=== PATIENT | female | born 1950 | race Caucasian/White ===

== ENCOUNTER 2018-11-20 14:01 | Observation (INO) ==
[2018-11-20] MEDS ORDERED: LORazepam 2 MG/1 ML VIAL IV STA ×2 (14:17→14:40)
[2018-11-20] MEDS ORDERED: LORazepam 2 MG/1 ML VIAL ONE (14:18)
[2018-11-20] MEDS ORDERED: MORPHINE 4 MG/1 ML VIAL ONE (14:29)
[2018-11-20] MEDS ORDERED: MORPHINE 4 MG/1 ML VIAL IV STA (14:38)
[2018-11-20] MEDS ORDERED: HALOPERIDOL 5 MG/ML AMP IV STA (14:41)
[2018-11-20 16:23] LABS: Basophils % 0.2 % (0.0-0.8); Eosinophils % 0.2 % (0.00-10.9); Hematocrit 39.3 VOL% (35.7-47.0); Hemoglobin 13.1 GM/DL (12.0-16.0); Immature Granulocytes % 0.6 %; Immature Granulocytes Absolute 0.07 #; Lymphocytes # 1.7 10*3/uL (1.4-4.0); Lymphocytes % 14.2 % (21.3-54.2); Mean Corpuscular HGB Conc 33.3 GM/DL (32-36); Mean Corpuscular Hemoglobin 31 PG (27-34); Mean Corpuscular Volume 92.9 FL (87-102); Mean Platelet Volume 10.6 FL (9.6-12.0); Monocytes # 0.7 10*3/uL (0.11-0.8); Monocytes % 5.4 % (1.7-12.7); Neutrophils # 9.8 10*3/uL (1.4-7.4); Neutrophils % 79.4 % (38.7-73.9); Platelet Count 202 T/CUMM (130-400); Red Blood Count 4.23 MC/CUMM (3.8-5.5); Red Cell Distribution Width 13.7 % (9.3-17.3); White Blood Count 12.3 T/CUMM (4-12)
[2018-11-20] MEDS ORDERED: SODIUM CHLORIDE 0.9% 500 ML IV STA (16:25)
[2018-11-20 16:27] LABS: Apearance,Urine CLEAR (Clear); Bacteria,Urine Occasional /HPF (Few); Bilirubin,Urine Negative (Negative); Blood, Urine Moderate mg/dL (Negative); Glucose,Urine (UA) Negative (Negative); Ketones,Urine Negative (Negative); Nitrite,Urine Negative (Negative); Protein,Urine Negative; RBC,Urine 2 /HPF (0-4); Urine Color Straw (Yellow); Urine Specific Gravity 1.004 (1.001-1.035); Urine Urobilinogen < 2.0 EU/DL (0.2-1.0)
[2018-11-20 16:32] LABS: INR 0.9; PT Patient Result 10.3 SECS; Partial Thromboplastin Time 26.6 SECS (0-40)
[2018-11-20 16:35] LABS: Barbiturates Screen,Urine Negative (Negative); Benzodiazepines Screen,Urine Negative (Negative); Cannabinoid Screen,Urine Negative (Negative); Opiate Screen,Urine Positive (Negative); Phencyclidine Screen,Urine Negative (Negative)
[2018-11-20 16:47] LABS: Albumin 3.1 G/DL (3.4-5.0); Bilirubin,Total 0.7 MG/DL (0.2-1.0); Calcium 8.8 MG/DL (8.5-10.1); Potassium 3.3 MMOL/L (3.5-5.1); Total Protein 7.7 G/DL (6.4-8.3)
[2018-11-20 16:54] LABS: Pt O2 Delivery Device Simple Mask
[2018-11-20 16:55] LABS: ABG Base Excess 1.9 MMOL/L (-2.5-2.5); ABG HCO3 26.1 MMOL/L (20-26); ABG Oxygen Saturation 99.8 % (95-100); ABG PCO2 50.4 MM HG (35-48); ABG PH 7.357 (7.35-7.45); ABG TCO2 25.1 MMOL/L (23-27)
[2018-11-20] MEDS ORDERED: ONDANSETRON 4 MG/2 ML VIAL IV PRN (17:04)
[2018-11-20] MEDS ORDERED: ALBUTEROL 2.5 MG/3 ML NEB RESP TX PRN (17:04)
[2018-11-20] MEDS ORDERED: SODIUM CHLORIDE 0.9% 1,000 ML IV STA (17:18)
[2018-11-20] MEDS ORDERED: oxyCODONE/ACETAMINOPHEN 5-325 MG TABLET PO PRN (19:47)
[2018-11-20] MEDS: SODIUM CHLORIDE 0.9% 1,000 ML IV SCH (19:50)
[2018-11-20] MEDS: ENOXAPARIN 40 MG/0.4 ML SYRINGE SUBCUT SCH (21:30)
[2018-11-20] MEDS: GABAPENTIN 600 MG TABLET PO SCH (21:31)
[2018-11-20] MEDS: SIMVASTATIN 20 MG TABLET PO SCH (21:31)
[2018-11-20] MEDS: SUCRALFATE 1 GM TABLET PO SCH (21:31)
[2018-11-20] MEDS: SERTRALINE 50 MG TABLET PO SCH (21:32)
[2018-11-20] MEDS: TEMAZEPAM 15 MG CAPSULE PO SCH (21:36)
[2018-11-21 05:12] LABS: Basophils % 0.3 % (0.0-0.8); Eosinophils # 0.1 10*3/uL (0.0-0.87); Eosinophils % 0.7 % (0.00-10.9); Hematocrit 36.9 VOL% (35.7-47.0); Hemoglobin 11.9 GM/DL (12.0-16.0); Immature Granulocytes % 0.4 %; Immature Granulocytes Absolute 0.04 #; Lymphocytes # 3.2 10*3/uL (1.4-4.0); Lymphocytes % 31.9 % (21.3-54.2); Mean Corpuscular HGB Conc 32.2 GM/DL (32-36); Mean Corpuscular Hemoglobin 31 PG (27-34); Mean Corpuscular Volume 94.9 FL (87-102); Mean Platelet Volume 11.6 FL (9.6-12.0); Monocytes # 0.9 10*3/uL (0.11-0.8); Monocytes % 8.6 % (1.7-12.7); Neutrophils # 5.9 10*3/uL (1.4-7.4); Neutrophils % 58.1 % (38.7-73.9); Platelet Count 163 T/CUMM (130-400); Red Blood Count 3.89 MC/CUMM (3.8-5.5); Red Cell Distribution Width 13.9 % (9.3-17.3); White Blood Count 10.1 T/CUMM (4-12)
[2018-11-21 05:37] LABS: Hypochromasia 1+; Ovalocytes Slight; Platelet Estimate Adequate
[2018-11-21 05:40] LABS: Albumin 2.8 G/DL (3.4-5.0); Bilirubin,Total 1.2 MG/DL (0.2-1.0); Osmolality,Calculated 280.4 MOS/KG (273-304); Potassium 3.7 MMOL/L (3.5-5.1); Total Protein 6.7 G/DL (6.4-8.3)
[2018-11-21] MEDS: LEVOTHYROXINE 75 MCG TABLET PO SCH (06:49)
[2018-11-21] MEDS: GABAPENTIN 600 MG TABLET PO SCH ×2 (08:16→21:08)
[2018-11-21] MEDS: ESTRADIOL 1 MG TABLET PO SCH (08:16)
[2018-11-21] MEDS: TRIAMTERENE/HCTZ 75-50 MG TABLET PO SCH ×2 (08:16→08:31)
[2018-11-21] MEDS: LINACLOTIDE 145 MCG CAPSULE PO SCH ×2 (08:17→08:31)
[2018-11-21] MEDS: ASPIRIN EC 325 MG TABLET PO SCH (08:17)
[2018-11-21] MEDS: ALLOPURINOL 300 MG TABLET PO SCH (08:17)
[2018-11-21] MEDS: PANTOPRAZOLE 40 MG TABLET PO SCH (08:17)
[2018-11-21] MEDS: SUCRALFATE 1 GM TABLET PO SCH ×4 (08:17→21:08)
[2018-11-21] MEDS: METOPROLOL TARTRATE 50 MG TABLET PO SCH (08:17)
[2018-11-21] MEDS ORDERED: GARLIC 1250 MG PO SCH (09:00)
[2018-11-21] MEDS: SODIUM CHLORIDE 0.9% 1,000 ML IV SCH (09:12)
[2018-11-21] MEDS: SERTRALINE 50 MG TABLET PO SCH (21:08)
[2018-11-21] MEDS: SIMVASTATIN 20 MG TABLET PO SCH (21:08)
[2018-11-21] MEDS: TEMAZEPAM 15 MG CAPSULE PO SCH (21:08)
[2018-11-21] MEDS: ENOXAPARIN 40 MG/0.4 ML SYRINGE SUBCUT SCH (21:08)
[2018-11-22] MEDS: LEVOTHYROXINE 75 MCG TABLET PO SCH (06:50)
[2018-11-22] MEDS: LINACLOTIDE 145 MCG CAPSULE PO SCH (09:15)
[2018-11-22] MEDS: PANTOPRAZOLE 40 MG TABLET PO SCH (09:16)
[2018-11-22] MEDS: ALLOPURINOL 300 MG TABLET PO SCH (09:16)
[2018-11-22] MEDS: ASPIRIN EC 325 MG TABLET PO SCH (09:16)
[2018-11-22] MEDS: SUCRALFATE 1 GM TABLET PO SCH (09:16)
[2018-11-22] MEDS: METOPROLOL TARTRATE 50 MG TABLET PO SCH (09:16)
[2018-11-22] MEDS: ESTRADIOL 1 MG TABLET PO SCH (09:16)
[2018-11-22] MEDS: GABAPENTIN 600 MG TABLET PO SCH (09:16)
[2018-11-22 10:25] VITALS: BP 143/91
== END 2018-11-22 10:45 | disposition home or self-care (01) ==
LOC: N.ED 14:01 → N.EDINP 14:01 → SUATTDRO 17:04 → N.CC 18:23 → N.5E 11-21 12:58
PROVIDERS: ADMIT Internal Medicine; ATTEND Family Medicine